=== PATIENT | female | born 1940 | race Caucasian/White ===

== ENCOUNTER 2020-10-04 08:59 | Inpatient (IN) | payer OTHER, MEDICAID, SELFPAY ==
[~2020-10-04] VITALS: Ht 157.5 cm; Wt 72.1 kg
[2020-10-04 09:00] VITALS: BP_SYST 127
--- NOTE | 2020-10-04 09:00 | NUR ---
Patient to ER bed 2 to gown for evaluation. Side rails up.
--- NOTE | 2020-10-04 09:00 | NUR ---
Pt came to ER via BLS ambulance for chest pain nonradiating 09/16. Pt was given x2 doses nitro en route to ER by EMS, pt states chest pain is 1/10 upon arrival, EKG completed at bedside, VSS, awaiting MD.
--- NOTE | 2020-10-04 09:05 | NUR ---
ER at bedside examining patient.
[2020-10-04 09:50] LABS: BASOPHILS % (AUTO) 0.5 % (0.0-2.0); EOSINOPHILS # (AUTO) 0.1 K/uL (0.0-0.4); EOSINOPHILS % (AUTO) 1.3 % (0.0-4.0); HEMATOCRIT 34.8 % (36-48); HEMOGLOBIN 11.8 g/dL (12.0-16.0); LYMPHOCYTES % (AUTO) 30.4 % (20.5-51.5); MEAN CORPUSCULAR HEMOGLOBIN 33 pg (27-31); MEAN CORPUSCULAR HGB CONC 34 % (32-36); MEAN CORPUSCULAR VOLUME 96 fL (79.0-98.0); MONOCYTES # (AUTO) 1.3 K/uL (0.0-1.0); NEUTROPHILS # (AUTO) 5.4 K/uL (1.8-7.7); RED BLOOD CELL COUNT(AUTO) 3.62 MIL/uL (4.2-6.2); RED CELL DISTRIBUTION WIDTH 15.3 % (9.0-15.0); WHITE BLOOD COUNT (AUTO) 9.8 K/uL (4.8-10.8)
[2020-10-04 09:59] LABS: PLATELET COUNT (AUTO) 19 K/uL (130-430)
--- NOTE | 2020-10-04 10:00 | NUR ---
PER PT'S KOFFI PT IS A FULL CODE
[2020-10-04 10:01] LABS: ANION GAP 9 (5-15); CALCIUM 8.5 mg/dL (8.4-11.0); CHLORIDE 106 mmol/L (98-107); CREATININE 0.92 mg/dL (0.55-1.30); GLUCOSE 112 mg/dL (70-99); POTASSIUM 3.4 mmol/L (3.5-5.1); SODIUM SERUM 142 mmol/L (136-145); UREA NITROGEN, BLOOD 12 mg/dL (8-21)
[2020-10-04] MEDS ORDERED: PRED10TA PO (10:06)
[2020-10-04] MEDS ORDERED: LISI10TA29 PO (10:06)
[2020-10-04] MEDS ORDERED: PANT20TA2 PO (10:06)
[2020-10-04] MEDS ORDERED: POTA20TA83 PO (10:06)
[2020-10-04] MEDS ORDERED: ACET325T PO (10:06)
[2020-10-04] MEDS ORDERED: AMLO5TAB4 PO (10:06)
[2020-10-04] MEDS ORDERED: APIX5TAB PO (10:06)
[2020-10-04] MEDS ORDERED: MOM PO (10:06)
[2020-10-04] MEDS ORDERED: CALC-808 PO (10:06)
[2020-10-04] MEDS ORDERED: POLY30DR OP (10:08)
[2020-10-04] MEDS ORDERED: FOST100T PO (10:08)
--- NOTE | 2020-10-04 10:08 | NUR ---
Medication reconciliation completed with information provided by pt medical record. Any prior medication reconciliation on file was reviewed and corrected.
[2020-10-04 10:10] LABS: ALANINE AMINOTRANSFERASE 59 U/L (12-78); ALBUMIN 2.4 g/dL (3.4-4.8); ASPARTATE AMINOTRANSFERASE 45 U/L (10-37); TOTAL BILIRUBIN 0.3 mg/dL (0.0-1.0)
--- NOTE | 2020-10-04 10:55 | NUR ---
# 20 gauge angiocath placed to RFA. Use of asceptic technique. Opsite placed over site. Blood return noted. Blood for lab drawn from site. Flushed with 10 cc of normal saline. No evidence of infiltration noted. Patient tolerated well.
--- NOTE | 2020-10-04 11:05 | NUR ---
Care of patient endorsed to KETURAH Claros. Pt currently resting in bed, no acute distress noted.
[2020-10-04] MEDS ORDERED: NITROGLYCERIN 0.4 MG TAB.SUBL SL ONE (11:15)
--- NOTE | 2020-10-04 11:27 | NUR ---
CALLED FOR BED SPOKE TO CHARGE NURSE YAIR. YAIR WILL CALL TAX CLERK FOR AN CLINICAL QUALITY MANAGER NURSE.
[2020-10-04 11:33] LABS: NEUTROPHILS % (AUTO) 54.8 % (40.0-70.0)
--- NOTE | 2020-10-04 12:19 | NUR ---
Patient will be admitted to care of DR. BRUSH. Admitted to TELE unit. Will go to room 113. Belongings list completed. Complete and up to date summary report printed. SBAR report to be given at bedside with opportunity for questions.
--- NOTE | 2020-10-04 12:19 | NUR ---
Transfer to TELE via ACLS protocol. Licensed nurse present. IV present no signs or symptoms of infiltration.
--- NOTE | 2020-10-04 12:30 | NUR ---
ADMISSION NOTE Received patient from ER via stacia, received report from KETURAH Cortes. Patient admitted with diagnosis of chest pain. Patient oriented to hospital routine, call light, toileting and safety-patient verbalized understanding.
--- NOTE | 2020-10-04 12:31 | NUR ---
CONSULTATION PAGED REASON FOR CONSULTATION:CHEST PAIN WAS CONSULT CALLED?Y PERSON WHO WAS NOTIFIED:ROCHELLE CONSULTING PHYSICIAN:STEVEN DANIELSON PLASTIC JOINT MAKER SPECIALTY:CARDIO PLASTIC JOINT MAKER PHONE NUMBER:[phone] REQUESTING PHYSICIAN:STORM YAO
--- NOTE | 2020-10-04 12:36 | NUR ---
CONSULTATION PAGED REASON FOR CONSULTATION:THROMBOCYTOPENIA WAS CONSULT CALLED?Y PERSON WHO WAS NOTIFIED:RAMONE CONSULTING PHYSICIAN:LOUIS SANCHEZ EDUCATION ADMINISTRATOR SPECIALTY:ONCOLOGY,HEMATOLOGY EDUCATION ADMINISTRATOR PHONE NUMBER:[phone] REQUESTING PHYSICIAN:STORM YAO
[2020-10-04 13:15] VITALS: BP_SYST 115
[2020-10-04] MEDS ORDERED: ACETAMINOPHEN 325 MG TABLET PO PRN (14:00)
[2020-10-04 15:40] VITALS: BP_SYST 122
[2020-10-04] MEDS: PEG 400/HYPROMELLOSE/GLYCERIN 15 ML DROPS OP SCH ×2 (16:13→21:35)
[2020-10-04] MEDS ORDERED: [UNRECOGNIZED DRUG - OTHER] OP SCH (17:00)
[2020-10-04] MEDS ORDERED: POVIDONE OP SCH (17:00)
[2020-10-04] MEDS ORDERED: POLYVINYL ALCOHOL OP SCH (17:00)
[2020-10-04] MEDS ORDERED: DEXAMETHASONE SOD PHOSPHATE 10 MG/ML VIAL IVP ONE (18:45)
--- NOTE | 2020-10-04 18:55 | NUR ---
Closing notes: Patient resting in bed. no signs of acute distress noted. call light within reach. fall and safety precaution reinforced.
--- NOTE | 2020-10-04 19:50 | NUR ---
Opening notes/Bedside commode Pt AAOx3, VSS, no s/s distress noted. Assisted pt to use bedside commode. Pt had a BM and voided. IV saline lock R. FA 20G clear and patent. Call light within reach. John SCDs on. Safety maintained. To monitor.
[2020-10-04 20:00] VITALS: BP_SYST 117
[2020-10-04] MEDS ORDERED: CALCIUM 200 mg(from Citrate)/VITAMIN D3 250 units TABLET PO SCH (21:00)
--- NOTE | 2020-10-04 21:50 | NUR ---
Off the unit for CT chest/Abd/Pelvis via wheelchair. No distress noted.
--- NOTE | 2020-10-04 22:15 | NUR ---
Pt back in room from CAT scan. Pt in stable condition.
[2020-10-05] VITALS: BP_SYST 143
[2020-10-05] MEDS: DEXAMETHASONE SOD PHOSPHATE 10 MG/ML VIAL IVP SCH ×4 (00:11→18:00)
--- NOTE | 2020-10-05 04:45 | NUR ---
Family called Spoke w/ pt's daughter Emilie.
--- NOTE | 2020-10-05 05:50 | NUR ---
Closing notes Pt alert, awake, no s/s distress noted. Pt denies pain. IV saline lock R. FA clear and patent. Call light wihtin reach. Bed low, locked, siderails up x2. To endorse to AM nurse.
--- NOTE | 2020-10-05 07:10 | NUR ---
OPENING NOTE RECEIVED SBAR FROM NIGHT RN, PATIENT IN BED RESPIRATIONS EVEN, NON LABORED, BED IN LOW AND LOCKED POSITION CALL LIGHT WITHIN REACH, BED ALARM ON,
[2020-10-05 07:35] LABS: ANION GAP 12 (5-15); CALCIUM 9.6 mg/dL (8.4-11.0); CHLORIDE 104 mmol/L (98-107); CREATININE 1.02 mg/dL (0.55-1.30); GLUCOSE 208 mg/dL (70-99); POTASSIUM 4.6 mmol/L (3.5-5.1); SODIUM SERUM 139 mmol/L (136-145); UREA NITROGEN, BLOOD 13 mg/dL (8-21)
[2020-10-05 07:47] LABS: BASOPHILS % (AUTO) 0.2 % (0.0-2.0); HEMATOCRIT 40.9 % (36-48); HEMOGLOBIN 13.6 g/dL (12.0-16.0); LYMPHOCYTES % (AUTO) 10.1 % (20.5-51.5); MEAN CORPUSCULAR HEMOGLOBIN 32 pg (27-31); MEAN CORPUSCULAR HGB CONC 33 % (32-36); MEAN CORPUSCULAR VOLUME 97 fL (79.0-98.0); MONOCYTES # (AUTO) 0.1 K/uL (0.0-1.0); MONOCYTES % (AUTO) 0.7 % (1.7-9.3); NEUTROPHILS # (AUTO) 8.8 K/uL (1.8-7.7); RED BLOOD CELL COUNT(AUTO) 4.22 MIL/uL (4.2-6.2); WHITE BLOOD COUNT (AUTO) 9.9 K/uL (4.8-10.8)
[2020-10-05 08:06] LABS: PLATELET COUNT (AUTO) 11 K/uL (130-430)
[2020-10-05] MEDS: MILK OF MAGNESIA 30 ML UDC PO SCH (08:07)
[2020-10-05] MEDS: POTASSIUM CHLORIDE 10 MEQ TAB.PRT.SR PO SCH (08:07)
[2020-10-05] MEDS: CALCIUM CARBONATE/VITAMIN D3 1 TAB TABLET PO SCH (08:07)
[2020-10-05] MEDS: LISINOPRIL 10 MG TABLET (PRINIVIL) PO SCH (08:09)
[2020-10-05] MEDS: amLODIPine BESYLATE 5 MG TABLET PO SCH (08:09)
--- NOTE | 2020-10-05 08:10 | NUR ---
CRITICAL LAB: Pebbles from Laboratory called with critical lab value of Platelets of 11. Medical record number and patient name verified. Read back of values done. Josy (RN) notified of value. Dr Osorio was paged for orders.
--- NOTE | 2020-10-05 08:10 | NUR ---
CRITICAL RECEIVED CRITICAL FROM KETURAH LIM, PLATELET 11K
[2020-10-05] MEDS: PEG 400/HYPROMELLOSE/GLYCERIN 15 ML DROPS OP SCH ×4 (08:14→21:24)
--- NOTE | 2020-10-05 08:31 | NUR ---
PAGED DR ODEN REGARDING CRITICAL LAB
--- NOTE | 2020-10-05 08:36 | NUR ---
CRITICAL LAB PAGED DR ODEN SPOKE TO ANDREW
[2020-10-05 11:41] VITALS: BP_SYST 126
[2020-10-05 15:47] VITALS: BP_SYST 114
--- NOTE | 2020-10-05 18:37 | NUR ---
Paged Dr. Awad, s/w Kelsy
--- NOTE | 2020-10-05 18:37 | NUR ---
IV Patient is complaining of pain to IV site, wishes to have it removed. Removed IV minimal bleeding. attempted to restart IV, unable to insert new IV, Paged Dr. Madrigal to see if medication can be changed to PO.
--- NOTE | 2020-10-05 19:13 | NUR ---
closing note Provided SBAR to night RN, patient in bed, respirations even, non labored, 2L O2 Nasal canula, bed in low and locked position, call light within reach, bed alarm on. Endorsed Page to Dr Madrigal regarding 1800 Medication that I was unable to give due to no IV acess, endorsed care to Night RN.
--- NOTE | 2020-10-05 19:30 | NUR ---
Received MD callback Dr. Madrigal called back and informed pt has no IV access. Per MD OK to change Decadron 10mg to PO 4x a day with meals and ordered for Pepcid. Will carry out orders.
--- NOTE | 2020-10-05 19:35 | NUR ---
rounds Dr. Tamium rounds and informed pt has no IV access. Per ok to insert midline if pt needs platelets.
[2020-10-05 20:00] VITALS: BP_SYST 117
--- NOTE | 2020-10-05 20:00 | NUR ---
Opening notes Pt AAOx3, VSS, no c/o pain. No IV access, MD aware. Encouraged pt to use call button for assistance, pt agreeable. Call light within reach. Bed low, locked, siderails up x2. To monitor.
[2020-10-05] MEDS: FAMOTIDINE 20 MG TABLET PO SCH (21:22)
[2020-10-06] MEDS ORDERED: DEXAMETHASONE SOD PHOSPHATE 10 MG/ML VIAL PO SCH
[2020-10-06] MEDS ORDERED: DEXAMETHASONE 1 MG TABLET (DECADRON) PO SCH (00:30)
[2020-10-06] MEDS: DECADRON 4 MG TABLET PO SCH ×5 (00:30→21:54)
[2020-10-06 02:28] VITALS: BP_SYST 119
[2020-10-06 05:07] LABS: FOLATE (FOLIC ACID) 14.6 ng/mL (>3.0)
--- NOTE | 2020-10-06 06:30 | NUR ---
Bedside commode Pt assisted to BSC and pt voided and had a soft BM.
--- NOTE | 2020-10-06 06:40 | NUR ---
Closing notes/IV re-start Pt alert, awake, no s/s distress. IV re-started R. wrist 20G. Successful after 1 attempt. Good blood return noted and flushed well w/ NS. Will observe for any signs of infiltration. Call light/items within reach. Bed low, locked, siderails up x2, alarm on. To endorse to AM nurse.
--- NOTE | 2020-10-06 06:47 | NUR ---
Nutrition Update Paul Scale 17 noted. Pt admitted for Chest pain Diet: Cardiac BMI: 29.1 kg/m2 RD to follow per nutrition care standards.
--- NOTE | 2020-10-06 07:39 | NUR ---
OPENING NOTE Patient resting on the bed. No acute distress. On O2 2L/min via NC. Skin warm and dry to touch. SL intact to right wrist, no redness, no swelling, patent. Safety measure maintained. Call light within reached. Bed locked in low position, side rails up, bed alarm on. Will continue to monitor.
[2020-10-06 07:50] VITALS: BP_SYST 118
[2020-10-06 08:32] LABS: HEMATOCRIT 37.8 % (36-48); HEMOGLOBIN 12.6 g/dL (12.0-16.0); LYMPHOCYTES # (AUTO) 1.4 K/uL (1.0-5.5); LYMPHOCYTES % (AUTO) 7.4 % (20.5-51.5); MEAN CORPUSCULAR HEMOGLOBIN 32 pg (27-31); MEAN CORPUSCULAR HGB CONC 33 % (32-36); MEAN CORPUSCULAR VOLUME 96 fL (79.0-98.0); MONOCYTES # (AUTO) 1.4 K/uL (0.0-1.0); MONOCYTES % (AUTO) 7.7 % (1.7-9.3); NEUTROPHILS # (AUTO) 15.5 K/uL (1.8-7.7); NEUTROPHILS % (AUTO) 84.9 % (40.0-70.0); RED BLOOD CELL COUNT(AUTO) 3.94 MIL/uL (4.2-6.2); RED CELL DISTRIBUTION WIDTH 15.3 % (9.0-15.0); WHITE BLOOD COUNT (AUTO) 18.3 K/uL (4.8-10.8)
[2020-10-06 08:49] LABS: PLATELET COUNT (AUTO) 68 K/uL (130-430)
--- NOTE | 2020-10-06 09:45 | NUR ---
SEEN AND EXAMINED BY STEVEN IGLESIAS.
--- NOTE | 2020-10-06 10:10 | NUR ---
SEEN AND EXAMINED BY LOUIS SHUKLA.
[2020-10-06] MEDS: CALCIUM CARBONATE/VITAMIN D3 1 TAB TABLET PO SCH (10:12)
[2020-10-06] MEDS: amLODIPine BESYLATE 5 MG TABLET PO SCH (10:12)
[2020-10-06] MEDS: MILK OF MAGNESIA 30 ML UDC PO SCH (10:12)
[2020-10-06] MEDS: FAMOTIDINE 20 MG TABLET PO SCH ×2 (10:12→21:52)
[2020-10-06] MEDS: POTASSIUM CHLORIDE 10 MEQ TAB.PRT.SR PO SCH (10:12)
[2020-10-06] MEDS: PEG 400/HYPROMELLOSE/GLYCERIN 15 ML DROPS OP SCH ×4 (10:13→21:52)
[2020-10-06] MEDS: LISINOPRIL 10 MG TABLET (PRINIVIL) PO SCH (10:13)
[2020-10-06 12:15] VITALS: BP_SYST 126
--- NOTE | 2020-10-06 13:12 | NUR ---
ROUND Patient resting in the bed. No acute distress. Continue on O2 2L/min via NC. Safety measure maintained. Call light within reached. Bed locked in low position, side rails up, bed alarm on. Continue to monitor.
[2020-10-06 15:50] VITALS: BP_SYST 130
--- NOTE | 2020-10-06 18:52 | NUR ---
CLOSING NOTE Patient resting on the bed. No acute distress. Continue on O2 2L/min via NC. Skin warm and dry to touch. SL intact to right wrist, no redness, no swelling, patent. All needs met. Safety measure maintained. Call light within reached. Bed locked in low position, side rails up, bed alarm on. Will endorse to night nurse.
--- NOTE | 2020-10-06 19:30 | NUR ---
Opening Note: Patient resting in bed. Breathing nonlabored on O2 2L/min via NC. Skin warm and dry to touch. SL intact to right wrist #20, no redness, no swelling, patent. All needs met. Safety, fall precautions in place. Call light within reached. Bed locked in low position, side rails up, bed alarm on. Will continue to monitor.
[2020-10-06 20:00] VITALS: BP_SYST 137
--- NOTE | 2020-10-06 21:10 | NUR ---
RN Rounds pt vital signs stable. pt tolerated medications. will continue to monitor.
[2020-10-07] VITALS: BP_SYST 137
--- NOTE | 2020-10-07 | NUR ---
RN ROunds pt vital signs stable. pt denies pain at this time. no s/s of distress.
--- NOTE | 2020-10-07 08:00 | NUR ---
OPENING NOTES PATIENT AAOX 4. RESPIRATION EVEN AND UNLABORED. VITALS SIGNS STABLE. AFEBRILE. PULLED OUT IV ACCESS. WHILE EATING BREAKFAST. ABDOMEN SOFT AND NON DISTENDED. BED IN LOW POSITION, ALARMED AND LOCKED. CONTINUE TO MONITOR PATIENTS STATUS.
--- NOTE | 2020-10-07 09:00 | NUR ---
PRESLEY CHARGE NURSE INSERT IV ON THE RT FOREARM. #20
[2020-10-07 09:05] LABS: BASOPHILS % (AUTO) 0.1 % (0.0-2.0); HEMATOCRIT 37.8 % (36-48); HEMOGLOBIN 12.5 g/dL (12.0-16.0); LYMPHOCYTES # (AUTO) 0.8 K/uL (1.0-5.5); LYMPHOCYTES % (AUTO) 5.1 % (20.5-51.5); MEAN CORPUSCULAR HEMOGLOBIN 32 pg (27-31); MEAN CORPUSCULAR HGB CONC 33 % (32-36); MEAN CORPUSCULAR VOLUME 96 fL (79.0-98.0); MONOCYTES # (AUTO) 0.6 K/uL (0.0-1.0); MONOCYTES % (AUTO) 3.8 % (1.7-9.3); NEUTROPHILS # (AUTO) 14.8 K/uL (1.8-7.7); PLATELET COUNT (AUTO) 148 K/uL (130-430); RED BLOOD CELL COUNT(AUTO) 3.94 MIL/uL (4.2-6.2); RED CELL DISTRIBUTION WIDTH 15.2 % (9.0-15.0); WHITE BLOOD COUNT (AUTO) 16.2 K/uL (4.8-10.8)
--- NOTE | 2020-10-07 09:36 | NUR ---
PATIENTS COMPLAINED OF CHEST PAIN ON THE LEFT SIDE OF THE HEART. GRADE OF 9. NITROGLYCERIN 0,4 MG SL GIVEN. MADE COMFORTABLE. DR SOGN COSMETIC ASSEMBLER MADE AWARE. CONTINUE TO MONITOR PATIENTS STATUS. AT 0946 NITROGLYCERIN 0.4 MG SL GIVEN AGAIN STILL WITH CHEST PAIN GRADE OF 8. HEART RATE 89. NO ECTOPY NOTED AT THIS TIME.
[2020-10-07] MEDS ORDERED: NITROGLYCERIN 0.4 MG TAB.SUBL SL ONE (09:37)
[2020-10-07] MEDS: DECADRON 4 MG TABLET PO SCH (09:41)
[2020-10-07] MEDS: amLODIPine BESYLATE 5 MG TABLET PO SCH (09:43)
[2020-10-07] MEDS: FAMOTIDINE 20 MG TABLET PO SCH (09:43)
[2020-10-07] MEDS: POTASSIUM CHLORIDE 10 MEQ TAB.PRT.SR PO SCH (09:43)
[2020-10-07] MEDS: CALCIUM CARBONATE/VITAMIN D3 1 TAB TABLET PO SCH (09:44)
[2020-10-07] MEDS ORDERED: NITROGLYCERIN 0.4 MG TAB.SUBL SL PRN (09:45)
[2020-10-07] MEDS: MILK OF MAGNESIA 30 ML UDC PO SCH (09:45)
[2020-10-07] MEDS: PEG 400/HYPROMELLOSE/GLYCERIN 15 ML DROPS OP SCH (09:45)
[2020-10-07] MEDS: LISINOPRIL 10 MG TABLET (PRINIVIL) PO SCH (09:45)
--- NOTE | 2020-10-07 10:01 | NUR ---
TEMP 97, HR 89 NO ECTOPY NOTED. EKG DONE AND SEEN BY DUNCAN. BP IS 129/73
[2020-10-07 11:19] VITALS: BP_SYST 137
--- NOTE | 2020-10-07 14:00 | NUR ---
DR BRUSH CAME AND INFORMED THAT PATIENT WANTS TO GO HOME TODAY.
[2020-10-07 14:42] VITALS: BP_SYST 130
--- NOTE | 2020-10-07 15:30 | NUR ---
PATIENT LEFT IN STABLE CONDITION VIA WHEELCHAIR BROUGHT BY HARJIT TO THE LOBBY AND APPLIANCE WORKER BY ONE OF THE DAUGHTER JESSIE. DISCHARGE SUMMARY GIVEN AND EXPLAINED THE FOLLOW UP FOR PCP IN ONE WEEK. AND PRESCRIPTION MEDICATION EACH ONE EXPLAINED THE INDICATION, SIDE EFFECTS, DOSAGE AND FREQUENCY. UNDERSTOOD BY THE PATIENT AND DAUGHTER. SCD H ID BAND REMOVED.
[2020-10-07] MEDS ORDERED: predniSONE 20 MG TABLET PO SCH (18:00)
[2020-10-08 13:07] LABS: ATYPICAL pANCA <1:20 titer (Neg:<1:20); CYTOPLASMIC (C-ANCA) <1:20 titer (Neg:<1:20); CYTOPLASMIC (P-ANCA) <1:20 titer (Neg:<1:20)
== END 2020-10-07 15:30 | disposition home or self-care (01) | DRG 313 ==
LOC: SED 08:59 → STU 11:03
PROVIDERS: ADMIT Family Medicine; ATTEND Family Medicine
DX: R07.89 Other chest pain (principal); D69.3 Immune thrombocytopenic purpura; E44.0 Moderate protein-calorie malnutrition; I10 Essential (primary) hypertension; M19.90 Unspecified osteoarthritis, unspecified site; Z20.822 Contact with and (suspected) exposure to COVID-19; E11.9 Type 2 diabetes mellitus without complications; Z79.01 Long term (current) use of anticoagulants; Z90.81 Acquired absence of spleen; Z88.2 Allergy status to sulfonamides; Z79.899 Other long term (current) drug therapy; Z68.29 Body mass index [BMI] 29.0-29.9, adult; Z86.2 Personal history of diseases of the blood and blood-forming organs and certain disorders involving the immune mechanism
CPT/HCPCS: 36415; 71045; 71260-TC; 76376; 80048; 80053; 82550; 82607; 82746; 83735; 84484; 85025; 86256; 87081; 93005; 93306; 97110-GP; 97530-GP; 99291; G0378; J1100; J8540; Q9967